=== PATIENT | male | born 1980 ===

== ENCOUNTER 2021-11-19 13:42 | Emergency (ER) | payer OTHER ==
[2021-11-19] MEDS ORDERED: Lidocaine 1% w/Epinephrine 1:100K 20 ML VIAL ONE ×2 (16:30→17:08)
[2021-11-19] MEDS ORDERED: Boostrix 0.5 ML (Tdap) VIAL ONE (16:43)
[2021-11-19] MEDS ORDERED: Bacitracin 1 PK ONE (17:31)
== END 2021-11-19 17:35 | disposition home or self-care (01) ==
LOC: CSHERS 13:42
DX: S61.411A Laceration without foreign body of right hand, initial encounter (principal); I10 Essential (primary) hypertension; W26.8XXA Contact with other sharp object(s), not elsewhere classified, initial encounter
CPT/HCPCS: 12013; 90471; 90715